=== PATIENT | female | born 1990 | race Caucasian/White ===

== ENCOUNTER 2021-08-16 08:58 | Emergency (ER) | payer BC ==
[~2021-08-16] VITALS: Ht 160 cm; Wt 64.0 kg
== END 2021-08-16 11:23 | disposition home or self-care (01) ==
LOC: ER 08:58
DX: T78.40XA Allergy, unspecified, initial encounter (principal); X58.XXXA Exposure to other specified factors, initial encounter; Z88.0 Allergy status to penicillin